=== PATIENT | male | born 1965 | race Caucasian/White ===

== ENCOUNTER → 2017-02-01 | Outpatient (CLI) | payer OTHER ==
[~2017-02-01] MED LIST: AUGMENTIN875 M1 PO; BACTRIM DS TABL1 TAB PO; FLEXERIL10 MG PO; KEFLEX PO; METOPROLOL TAR25 MG PO; NEURONTIN PO; NO MEDICATIONS; NORCO 7.5-3251 EACH PO; ORUDIS75 M1 PO; PREVACID PO; PROTONIX20 MG PO; ULTRAM PO; VICODIN PO; ZANTAC150 M1 PO; ZESTRIL40 MG PO
--- NOTE | ~2017-02-01 | CR63 ---
[facility]. [facility] A Service of [facility] & [facility] RADIOLOGY TEXT RESULTS PATIENT: ELIZ MCGOWAN LOCATION: [facility] : 61 UNIT #: [id number] AGE: [address]: Laly Mcghee UROLOGIC SURGEON SEX: M ORDER DR: [id number] [place] [id number] O MR#: [id number] Acc #: [id number] NAME: ELIZ MCGOWAN : 1965 SEX: M STUDY DATE/TIME: 02/01/2017 9:07 UNIT: SRAD ROOM: STUDY DESCRIPTION: CR Chest 2 View Attending Physician: Laly Mcghee A.P.R.N. Referring Physician: Laly Mcghee A.P.R.N. Ordering Physician: Laly Mcghee A.P.R.N. Primary Care Physician: Charles Lomas Pa-C MEDICAL IMAGING REPORT This report is preliminary unless electronic signature is present. EXAM PA and lateral chest HISTORY Cough for 1 week. COMPARISON 03/26/2014 FINDINGS A PA and lateral view of the chest were obtained. The heart size and vascularity are normal and the lungs are clear. The bones are unremarkable. IMPRESSION No active disease. Dictated by... Leonides Dominguez M.D. THIS IS AN ELECTRONICALLY VERIFIED REPORT Leonides Dominguez M.D. at 02/01/2017 3:58 PM Isaias TD: 02/01/2017 15:17 JOB #: [id number] MEDICAL IMAGING REPORT Page 1 of 1
== END | disposition home or self-care (01) ==
LOC: SRAD 09:04
DX: R05 Cough (principal); F17.200 Nicotine dependence, unspecified, uncomplicated
CPT/HCPCS: 71020